=== PATIENT | male | born 1935 | race Asian ===

== ENCOUNTER 2018-01-07 19:32 | Inpatient (IN) | payer MEDICAID ==
[~2018-01-07] VITALS: Ht 160 cm; Wt 49.9 kg
[2018-01-07 22:01] LABS: BASOPHILS % 0.2 % (0.0-2.0); EOSINOPHILS % 5.6 % (0.0-5.0); HEMATOCRIT. 38.5 % (42.0-52.0); HEMOGLOBIN. 13.4 g/dL (14.0-18.0); LYMPHOCYTES % 15.8 % (20.0-50.0); MEAN CORPUSCULAR HEMOGLOBIN 33.5 pg (28.0-32.0); MEAN CORPUSCULAR VOLUME 96.6 fL (80.0-94.0); MONOCYTES % 6.6 % (2.0-8.0); NEUTROPHILS % 71.8 % (40.0-76.0); PLATELET 251 x1000/uL (130-400); RED BLOOD CELL COUNT 3.99 mill/uL (4.7-6.1); RED CELL DISTRIBUTION WIDTH 12.2 % (11.6-14.6)
[2018-01-07 22:04] LABS: CHLORIDE 88 mEq/L (98-107)
[2018-01-08 03:30] VITALS: BP 167/57
[2018-01-08] MEDS ORDERED: AMLO10TA4 MT (03:53)
[2018-01-08] MEDS ORDERED: [UNRECOGNIZED DRUG - OTHER] MT (03:53)
[2018-01-08] MEDS ORDERED: [UNRECOGNIZED DRUG - OTHER] MT (03:53)
[2018-01-08] MEDS ORDERED: MULT-1146 MT (03:53)
[2018-01-08] MEDS ORDERED: HYDROCODONE/ACETAMINOPHEN 5/325MG TABLET PO PRN (06:15)
[2018-01-08 08:00] VITALS: BP 134/52
[2018-01-08] MEDS ORDERED: [UNRECOGNIZED DRUG - OTHER] MT SCH (09:00)
[2018-01-08] MEDS ORDERED: [UNRECOGNIZED DRUG - OTHER] MT SCH (09:00)
[2018-01-08] MEDS ORDERED: MEDICATION NOT ON FORMULARY EA (Multivitamin (Multi Vitamin Daily) 1 TAB) MT SCH (09:00)
[2018-01-08 09:07] LABS: BASOPHILS % 0.3 % (0.0-2.0); EOSINOPHILS % 10.1 % (0.0-5.0); HEMATOCRIT. 41.8 % (42.0-52.0); HEMOGLOBIN. 14.4 g/dL (14.0-18.0); LYMPHOCYTES % 18.5 % (20.0-50.0); MEAN CORPUSCULAR HEMOGLOBIN 33.7 pg (28.0-32.0); MEAN CORPUSCULAR VOLUME 97.6 fL (80.0-94.0); MEAN PLATELET VOLUME 7.2 fl (7.4-10.4); NEUTROPHILS % 64.1 % (40.0-76.0); PLATELET 285 x1000/uL (130-400); RED BLOOD CELL COUNT 4.28 mill/uL (4.7-6.1); RED CELL DISTRIBUTION WIDTH 12.7 % (11.6-14.6)
[2018-01-08 09:26] LABS: CHLORIDE 94 mEq/L (98-107)
[2018-01-08 09:42] LABS: HDL CHOLESTEROL 61 mg/dL (40-59)
[2018-01-08 09:44] LABS: LDL CHOLESTEROL 132 mg/dL (5-100)
[2018-01-08] MEDS: MULTIVITAMINS,THER W-MINERALS TABLET PO SCH (10:33)
[2018-01-08] MEDS: AMLODIPINE 10MG TABLET PO SCH (10:34)
[2018-01-08] MEDS: ENOXAPARIN 40MG/0.4ML SYR SUBCUT SCH (10:34)
[2018-01-08 11:16] LABS: CREATINE KINASE 83 IU/L (39-308)
[2018-01-08] MEDS ORDERED: CLONIDINE 0.1MG TABLET PO PRN (11:30)
[2018-01-08] MEDS ORDERED: CLONIDINE 0.2MG TABLET PO PRN (11:30)
[2018-01-08 12:00] VITALS: BP 130/75
[2018-01-08 13:33] LABS: CLARITY URINE CLEAR (CLEAR); COLOR URINE YELLOW (YELLOW); KETONES URINE NEGATIVE (NEGATIVE); LEUKOCYTE ESTERASE URINE NEGATIVE (NEGATIVE); NITRITE URINE NEGATIVE (NEGATIVE); OCCULT BLOOD URINE NEGATIVE (NEGATIVE); PROTEIN URINE NEGATIVE (NEGATIVE); SPECIFIC GRAVITY URINE 1.014 (1.005-1.030); UROBILINOGEN URINE 0.2 E.U./dL (0.2-1.0)
[2018-01-08 13:48] LABS: METHADONE URINE SCREEN NEGATIVE (NEGATIVE); OPIATES URINE SCREEN NEGATIVE (NEGATIVE)
[2018-01-08 13:49] LABS: *AMPHETAMINES SCREEN URINE NEGATIVE (NEGATIVE); *BARBITURATES SCREEN URINE NEGATIVE (NEGATIVE); *BENZODIAZEPINES SCREEN URINE NEGATIVE (NEGATIVE); CANNABINOID URINE SCREEN NEGATIVE (NEGATIVE); PHENCYCLIDINE URINE SCREEN NEGATIVE (NEGATIVE)
[2018-01-08 14:00] LABS: *COCAINE SCREEN URINE NEGATIVE (NEGATIVE)
[2018-01-08] MEDS: ASPIRIN 325MG EC TABLET PO SCH (14:20)
[2018-01-08] MEDS: LOSARTAN POTASSIUM 25 MG TABLET PO SCH ×2 (14:20→16:20)
[2018-01-08] MEDS: NITROGLYCERIN OINT 1GM/INCH UDPKT TD SCH (14:21)
[2018-01-08] MEDS: SODIUM CHLORIDE 0.9% 1,000 ML IV SCH (15:18)
[2018-01-08 16:00] VITALS: BP 142/60
[2018-01-08 20:00] VITALS: BP 114/60
[2018-01-09] VITALS (7 sets, daily range): BP systolic 109–154; BP diastolic 54–73
[2018-01-09] MEDS: NITROGLYCERIN OINT 1GM/INCH UDPKT TD SCH ×5 (00:23→15:30)
[2018-01-09 07:45] LABS: BASOPHILS % 0.4 % (0.0-2.0); CREATINE KINASE 50 IU/L (39-308); EOSINOPHILS % 11.5 % (0.0-5.0); HEMATOCRIT. 36.9 % (42.0-52.0); HEMOGLOBIN. 12.7 g/dL (14.0-18.0); LYMPHOCYTES % 20.1 % (20.0-50.0); MEAN CORPUSCULAR HEMOGLOBIN 33.5 pg (28.0-32.0); MEAN CORPUSCULAR VOLUME 97.5 fL (80.0-94.0); MEAN PLATELET VOLUME 7.2 fl (7.4-10.4); PLATELET 256 x1000/uL (130-400); RED BLOOD CELL COUNT 3.79 mill/uL (4.7-6.1); RED CELL DISTRIBUTION WIDTH 12.7 % (11.6-14.6)
[2018-01-09 07:46] LABS: CREATINE KINASE MB FRACTION 1.5 ng/mL (0.5-3.6)
[2018-01-09] MEDS ORDERED: REGADENOSON 0.4 MG/5 ML IV NR (08:00)
[2018-01-09] MEDS: LOSARTAN POTASSIUM 25 MG TABLET PO SCH ×2 (08:37→17:42)
[2018-01-09] MEDS: MULTIVITAMINS,THER W-MINERALS TABLET PO SCH (08:40)
[2018-01-09] MEDS: AMLODIPINE 10MG TABLET PO SCH (08:40)
[2018-01-09] MEDS: ASPIRIN 325MG EC TABLET PO SCH (08:40)
[2018-01-09] MEDS: SODIUM CHLORIDE 0.9% 1,000 ML IV SCH (08:40)
[2018-01-09] MEDS: ENOXAPARIN 40MG/0.4ML SYR SUBCUT SCH (08:44)
[2018-01-09] MEDS ORDERED: REGADENOSON 0.4 MG/5 ML IV ONE (11:47)
[2018-01-09 12:45] LABS: HEMATOCRIT 39.6 % (42.0-52.0); MEAN CORPUSCULAR HEMOGLOBIN 34.4 pg (28.0-32.0); MEAN CORPUSCULAR VOLUME 97.4 fL (80.0-94.0); PLATELET 260 x1000/uL (130-400); RED BLOOD CELL COUNT 4.06 mill/uL (4.7-6.1); RED CELL DISTRIBUTION WIDTH 12.8 % (11.6-14.6)
[2018-01-09 12:51] LABS: CHLORIDE 97 mEq/L (98-107)
[2018-01-09] MEDS ORDERED: ASPI-1159 MT (20:02)
== END 2018-01-09 20:50 | disposition home or self-care (01) | DRG 133 ==
LOC: ER 23:38 → EDBEDREQDT 01-08 00:56 → EDBEDREQTM 01-08 00:56 → EDBEDREQ 01-08 00:56 → ENRESERV 01-08 02:45 → OBSVTOIN 01-08 03:30 → 8WST 01-08 03:30
PROVIDERS: ADMIT Internal Medicine; ATTEND Internal Medicine
DX: J96.00 Acute respiratory failure, unspecified whether with hypoxia or hypercapnia (principal); I11.0 Hypertensive heart disease with heart failure; I50.9 Heart failure, unspecified; E87.1 Hypo-osmolality and hyponatremia; R07.89 Other chest pain; Z82.49 Family history of ischemic heart disease and other diseases of the circulatory system; Z87.891 Personal history of nicotine dependence; Z79.899 Other long term (current) drug therapy; Z79.82 Long term (current) use of aspirin
CPT/HCPCS: 36415; 71045; 78452; 80048; 80053; 80061; 80305; 81003; 82550; 82553; 83036; 83690; 83735; 83880; 83930; 83935; 84295; 84300; 84443; 84484; 85025; 85027; 93005; 93017; 93306; 93970; 99285; A9500; J1650; J2785; J7030